=== PATIENT | male | born 2000 | race American Indian/Alaskan Native ===

== ENCOUNTER 2018-10-22 02:10 | Emergency (ER) | payer SELFPAY ==
[2018-10-22] MEDS ORDERED: MOTRIN PO ONE (05:18)
[2018-10-22] MEDS ORDERED: MOTRIN ONE (05:19)
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
[2018-10-22] MEDS ORDERED: NORCO 5/325 PO ONE (09:17)
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
[2018-10-22 10:38] VITALS: BP 135/74
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
== END 2018-10-22 10:37 | disposition home or self-care (01) ==
LOC: ED 02:10
DX: M54.89 Other dorsalgia (principal); M54.2 Cervicalgia; R51 Headache; V89.2XXA Person injured in unspecified motor-vehicle accident, traffic, initial encounter; Y93.89 Activity, other specified; Y99.8 Other external cause status; Y92.410 Unspecified street and highway as the place of occurrence of the external cause
CPT/HCPCS: 70450; 72072; 72100; 72125